=== PATIENT | male | born 1980 | race Two or more races ===

== ENCOUNTER 2019-05-23 20:38 | Emergency (ER) | payer SELFPAY ==
[~2019-05-23] VITALS: Ht 185.4 cm; Wt 97.0 kg
[2019-05-23 20:43] VITALS: BP 105/82
[2019-05-23] MEDS ORDERED: METH36TA4 PO (22:43)
== END 2019-05-23 23:24 | disposition home or self-care (01) ==
LOC: ER 20:39
DX: F90.8 Attention-deficit hyperactivity disorder, other type (principal); Z76.0 Encounter for issue of repeat prescription; Z87.891 Personal history of nicotine dependence
CPT/HCPCS: 99283

== ENCOUNTER 2019-08-09 13:15 | Emergency (ER) | payer MEDICAID, OTHER ==
[~2019-08-09] VITALS: Ht 188 cm; Wt 102.1 kg
[~2019-08-09 13:15] MED LIST: METH36TA4 PO
[2019-08-09 13:19] VITALS: BP 138/76
== END 2019-08-09 15:12 | disposition home or self-care (01) ==
LOC: ER 13:16
DX: F90.9 Attention-deficit hyperactivity disorder, unspecified type (principal); Z56.0 Unemployment, unspecified; Z79.899 Other long term (current) drug therapy
CPT/HCPCS: 99281